=== PATIENT | female | born 1985 | race Hispanic/Latino ===

== ENCOUNTER 2017-06-24 15:57 | Emergency (ER) | payer SELFPAY ==
[2017-06-24 17:03] LABS: Pregnancy Test - Urine (BHCG) Negative (Negative); Pregu Control Background? CLEAR/WHITE (CLR/WHITE); Pregu Control Bar Appear? YES (CONTROL BAR)
[2017-06-24 17:04] LABS: Bilirubin Small (Negative); Blood, Urine Large (Negative); Glucose, Urine (Dipstick) Negative (Negative); Leukocyte Negative (Negative); Nitrite Negative (Negative); Protein, Urine (Dipstick) 30 mg/dL (Neg-Trace); Urobilinogen 0.2 mg/dL (0.2-1.0); pH, Urine 5.5 (5.0-9.0)
[2017-06-24 17:05] LABS: Clarity Cloudy (Clear)
[2017-06-24 17:12] LABS: Specific Gravity 1.025 (1.002-1.036); Specific Gravity, Urine 1.025 (1.005-1.030)
[2017-06-24 17:15] LABS: RBC/HPF GREATER THAN 50-TNTC HPF (0-3)
[2017-06-24 17:16] LABS: Bacteria/HPF None Seen HPF (None Seen); Hyaline Casts/LPF NONE SEEN LPF (0-3 Hyaline); Squamous Epithelial 0-3 HPF (0-3); WBC/HPF 0-3 HPF (0-3)
== END 2017-06-24 18:25 | disposition home or self-care (01) ==
LOC: ERS 15:57
DX: N93.8 Other specified abnormal uterine and vaginal bleeding (principal)
CPT/HCPCS: 81003; 81015; 81025; 99284

== ENCOUNTER 2017-07-18 08:34 | Emergency (ER) | payer SELFPAY ==
[2017-07-18] MEDS ORDERED: Ondansetron HCl/PF 4 MG/2 ML Vial ONE (09:11)
[2017-07-18 09:33] LABS: Hemoglobin 9.2 g/dL (12.0-16.0); Mean Corpuscular HGB CONC 29.5 g/dL (32.0-36.0); Mean Corpuscular Hemoglobin 20.3 pg (27.0-31.0); Mean Platelet Volume 10.5 fL (7.4-10.4); Platelet Count 314 thou/uL (130-400); RBC Distribution Width 24.5 % (11.5-14.5); Red Blood Cell (RBC) Count 4.55 mill/uL (4.20-5.40); White Blood Cell (WBC) Count 11.9 thou/uL (4.8-10.8)
[2017-07-18 09:35] LABS: BHCG - Serum Negative (NEGATIVE); Pregs Control Background? CLEAR/WHITE (CLR/WHITE); Pregs Control Bar Appear? YES (CONTROL BAR)
[2017-07-18 09:43] LABS: #Lymphocytes 0.6 thou/uL (1.20-3.40); #Monocytes 0.4 thou/uL (0.11-0.59); #Neutrophils 10.8 thou/uL (1.40-6.50); %Basophils 0.1 % (0.0-1.0); %Eosinophils 0.2 % (0.0-10.0); %Lymphocytes 5.4 % (21.0-51.0); %Monocytes 3.7 % (0.0-10.0); %Neutrophils 90.6 % (42.0-75.0); Anisocytosis MODERATE=16-30 cells (100X) (0-5/hpf); MDiff Complete? YES; Microcytosis SLIGHT = 6-15 cells (100X) (0-5/hpf); Poikilocytosis SLIGHT = 6-15 cells (100X) (0-5/hpf); Polychromasia SLIGHT = 2-3 cells (100X) (0-2/hpf)
[2017-07-18 09:46] LABS: ALT (SGPT) 33 U/L (8-55); AST (SGOT) 20 U/L (5-34); Alkaline Phosphatase 93 U/L (40-150); Anion Gap 14 mmol/L (10-20); BUN (Urea Nitrogen) 7 mg/dL (7.0-18.7); Bilirubin, Total 0.7 mg/dL (0.2-1.2); Calc. Creatinine Clearance 0 mL/min (70-130); Calcium 9.2 mg/dL (7.8-10.44); Carbon Dioxide 19 mmol/L (22-29); Chloride 103 mmol/L (98-107); Estimated GFR-MDRD Greater than 90; Globulin 3.8 g/dL (2.4-3.5); Glucose 143 mg/dL (70-105); Lipase 10 U/L (8-78); Potassium 3.8 mmol/L (3.5-5.1); Protein, Total 7.8 g/dL (6.0-8.3); Sodium 132 mmol/L (136-145)
== END 2017-07-18 10:48 | disposition home or self-care (01) ==
LOC: ERS 08:34
DX: R11.2 Nausea with vomiting, unspecified (principal); R19.7 Diarrhea, unspecified; Z79.899 Other long term (current) drug therapy
CPT/HCPCS: 36415; 80053; 83690; 84703; 85025; 96361; 96372; 96374; J2405

== ENCOUNTER 2017-08-08 07:37 | Emergency (ER) | payer SELFPAY ==
[2017-08-08 08:48] LABS: ALT (SGPT) 42 U/L (8-55); AST (SGOT) 31 U/L (5-34); Albumin 3.9 g/dL (3.5-5.0); Alkaline Phosphatase 75 U/L (40-150); Anion Gap 12 mmol/L (10-20); BUN (Urea Nitrogen) 9 mg/dL (7.0-18.7); Bilirubin, Total 0.3 mg/dL (0.2-1.2); Calc. Creatinine Clearance 0 mL/min (70-130); Calcium 9.5 mg/dL (7.8-10.44); Carbon Dioxide 23 mmol/L (22-29); Chloride 106 mmol/L (98-107); Estimated GFR-MDRD Greater than 90; Globulin 4.1 g/dL (2.4-3.5); Glucose 93 mg/dL (70-105); Potassium 4.3 mmol/L (3.5-5.1); Sodium 137 mmol/L (136-145)
[2017-08-08 09:11] LABS: #Eosinphils 0.1 thou/uL (0.0-0.7); #Lymphocytes 1.5 thou/uL (1.20-3.40); #Monocytes 0.5 thou/uL (0.11-0.59); #Neutrophils 4.5 thou/uL (1.40-6.50); %Basophils 0.5 % (0.0-1.0); %Eosinophils 1.5 % (0.0-10.0); %Lymphocytes 21.9 % (21.0-51.0); %Monocytes 7.8 % (0.0-10.0); %Neutrophils 68.3 % (42.0-75.0); Hemoglobin 11.6 g/dL (12.0-16.0); Mean Corpuscular HGB CONC 29.5 g/dL (32.0-36.0); Mean Corpuscular Hemoglobin 22.8 pg (27.0-31.0); Mean Corpuscular Volume 77.3 fl (81.0-99.0); Mean Platelet Volume 11.6 fL (7.4-10.4); Platelet Count 266 thou/uL (130-400); RBC Distribution Width 24.3 % (11.5-14.5); Red Blood Cell (RBC) Count 5.06 mill/uL (4.20-5.40); White Blood Cell (WBC) Count 6.6 thou/uL (4.8-10.8)
[2017-08-08 09:37] LABS: BHCG - Serum Negative (NEGATIVE); Pregs Control Background? CLEAR/WHITE (CLR/WHITE); Pregs Control Bar Appear? YES (CONTROL BAR)
[2017-08-08 09:46] LABS: Bilirubin Negative (Negative); Blood, Urine Large (Negative); Clarity CLOUDY (Clear); Glucose, Urine (Dipstick) Negative (Negative); Leukocyte Small (Negative); Nitrite Negative (Negative); Protein, Urine (Dipstick) Trace mg/dL (Neg-Trace); Specific Gravity, Urine 1.025 (1.002-1.036)
[2017-08-08 09:48] LABS: Bacteria/HPF None Seen HPF (None Seen); Hyaline Casts/LPF 0-3 HYALINE CAST LPF (0-3 Hyaline); Pathc Cast-AUWi Flag 0.16 (0-2.49); RBC/HPF GREATER THAN 50-TNTC HPF (0-3); Squamous Epithelial 0-3 HPF (0-3); WBC/HPF 0-3 HPF (0-3)
[2017-08-08 09:49] LABS: Pregnancy Test - Urine (BHCG) Negative (Negative); Specific Gravity 1.025 (1.002-1.036)
[2017-08-08 09:50] LABS: Pregu Control Background? CLEAR/WHITE (CLR/WHITE); Pregu Control Bar Appear? YES (CONTROL BAR)
[2017-08-08] MEDS ORDERED: Ketorolac Tromethamine 30 MG/ML VIAL ONE (10:18)
--- NOTE | 2017-08-08 11:09 | ULT ---
PELVIC ULTRASOUND: Date: 08/08/17 COMPARISON: None. HISTORY: Heavy vaginal bleeding and severe pelvic pain. TECHNIQUE: Multiplanar Springer scale and color Doppler images obtained in a transabdominal and transvaginal pelvic ultrasound. FINDINGS: Evaluation is limited secondary to patient's large body habitus. Neither ovary was able to be visuali zed. There is a small nabothian cyst in the cervix. The uterus is slightly enlarged. The endometrial strip e appears thickened. And heterogeneous measuring 4.0 cm. No obvious flow is seen within this endometr ial stripe and this could potentially be blood products within the uterus. No free fluid is seen in the pelvis. Neither ovary is able to be visualized. IMPRESSION: Apparent thickening of the endometrial stripe. No obvious flow is seen within this thickening and thi s could represent blood products. However, endometrial aplasia or an endometrial neoplasm are also po ssibilities. Correlate with gynecologic exam. POS: CASH
== END 2017-08-08 11:57 | disposition home or self-care (01) ==
LOC: ERS 07:37
DX: N93.8 Other specified abnormal uterine and vaginal bleeding (principal); Z79.899 Other long term (current) drug therapy
CPT/HCPCS: 36415; 76856; 80053; 81003; 81015; 81025; 84703; 85025; 96374; J1885

== ENCOUNTER 2017-10-20 17:22 | Emergency (ER) | payer SELFPAY ==
[2017-10-20 18:01] LABS: Bilirubin Negative (Negative); Blood, Urine Large (Negative); Glucose, Urine (Dipstick) Negative (Negative); Leukocyte Moderate (Negative); Nitrite Positive (Negative); Protein, Urine (Dipstick) 100 mg/dL (Neg-Trace); pH, Urine 5.5 (5.0-9.0)
[2017-10-20 18:05] LABS: Specific Gravity, Urine 1.025 (1.002-1.036)
[2017-10-20 18:07] LABS: #Eosinphils 0.1 thou/uL (0.0-0.7); #Lymphocytes 2.3 thou/uL (1.20-3.40); #Neutrophils 11.2 thou/uL (1.40-6.50); %Basophils 0.3 % (0.0-1.0); %Eosinophils 0.8 % (0.0-10.0); %Lymphocytes 15.8 % (21.0-51.0); %Monocytes 6.8 % (0.0-10.0); %Neutrophils 76.4 % (42.0-75.0); Hemoglobin 11.9 g/dL (12.0-16.0); Mean Corpuscular HGB CONC 31.7 g/dL (32.0-36.0); Mean Corpuscular Hemoglobin 26.2 pg (27.0-31.0); Mean Corpuscular Volume 82.8 fl (81.0-99.0); Mean Platelet Volume 8.5 fL (7.4-10.4); Platelet Count 272 thou/uL (130-400); RBC Distribution Width 14.9 % (11.5-14.5); Red Blood Cell (RBC) Count 4.55 mill/uL (4.20-5.40); White Blood Cell (WBC) Count 14.7 thou/uL (4.8-10.8)
[2017-10-20 18:13] LABS: Clarity Cloudy (Clear)
[2017-10-20 18:14] LABS: RBC/HPF GREATER THAN 50-TNTC HPF (0-3); Squamous Epithelial 0-3 HPF (0-3)
[2017-10-20 18:15] LABS: Bacteria/HPF Rare-Few HPF (None Seen); Hyaline Casts/LPF 0-3 HYALINE CAST LPF (0-3 Hyaline)
[2017-10-20 18:17] LABS: Pregnancy Test - Urine (BHCG) Negative (Negative); Pregu Control Background? CLEAR/WHITE (CLR/WHITE); Pregu Control Bar Appear? YES (CONTROL BAR); Specific Gravity 1.025 (1.002-1.036)
[2017-10-20 18:34] LABS: ALT (SGPT) 25 U/L (8-55); AST (SGOT) 21 U/L (5-34); Albumin 3.8 g/dL (3.5-5.0); Alkaline Phosphatase 80 U/L (40-150); Anion Gap 13 mmol/L (10-20); BUN (Urea Nitrogen) 6 mg/dL (7.0-18.7); Bilirubin, Total 0.2 mg/dL (0.2-1.2); Calc. Creatinine Clearance 0 mL/min (70-130); Carbon Dioxide 22 mmol/L (22-29); Chloride 108 mmol/L (98-107); Estimated GFR-MDRD Greater than 90; Globulin 3.8 g/dL (2.4-3.5); Glucose 98 mg/dL (70-105); Lipase 13 U/L (8-78); Potassium 3.7 mmol/L (3.5-5.1); Protein, Total 7.6 g/dL (6.0-8.3); Sodium 139 mmol/L (136-145)
[2017-10-20] MEDS ORDERED: Ketorolac Tromethamine 60 MG/2 ML VIAL ONE (18:41)
--- NOTE | 2017-10-20 20:26 | ULT ---
PELVIC ULTRASOUND: INDICATIONS: A 32-year-old female with pelvic pain. TECHNIQUE: Transabdominal and endovaginal ultrasound of the pelvis performed. FINDINGS: The uterus is mildly prominent, measured at 10.6 x 5.8 x 8 cm. The endometrium is thickened, measure d at 2.7 to 3 cm. Both ovaries are identified and appear unremarkable. Color Doppler with spectral analysis demonstrat es blood flow to both ovaries. When comparison is made to the ultrasound exam dated 08/08/2017, the endometrial thickening is slight ly prominent today but is persistent. IMPRESSION: Persistent endometrial thickening. POS: CASH
== END 2017-10-20 20:48 | disposition home or self-care (01) ==
LOC: ERS 17:22
DX: N30.00 Acute cystitis without hematuria (principal); Z79.899 Other long term (current) drug therapy
CPT/HCPCS: 36415; 76856; 80053; 81003; 81015; 81025; 83690; 85025; 96372; J1885

== ENCOUNTER 2017-10-24 09:06 | Emergency (ER) | payer SELFPAY ==
[2017-10-24 09:48] LABS: #Eosinphils 0.2 thou/uL (0.0-0.7); #Lymphocytes 1.8 thou/uL (1.20-3.40); #Monocytes 0.6 thou/uL (0.11-0.59); #Neutrophils 6.9 thou/uL (1.40-6.50); %Basophils 0.4 % (0.0-1.0); %Eosinophils 1.6 % (0.0-10.0); %Lymphocytes 18.9 % (21.0-51.0); Hemoglobin 9.9 g/dL (12.0-16.0); Mean Corpuscular Hemoglobin 26.2 pg (27.0-31.0); Mean Corpuscular Volume 84.7 fl (81.0-99.0); Mean Platelet Volume 7.8 fL (7.4-10.4); Platelet Count 277 thou/uL (130-400); RBC Distribution Width 14.3 % (11.5-14.5); Red Blood Cell (RBC) Count 3.76 mill/uL (4.20-5.40); White Blood Cell (WBC) Count 9.5 thou/uL (4.8-10.8)
[2017-10-24 09:51] LABS: Clarity Turbid (Clear)
[2017-10-24 09:52] LABS: Bilirubin Unable to Interpret (Negative); Blood, Urine Unable to Interpret (Negative); Glucose, Urine (Dipstick) Unable to Interpret mg/dL (Negative); Leukocyte Unable to Interpret (Negative); Nitrite Unable to Interpret (Negative); Protein, Urine (Dipstick) Unable to Interpret mg/dL (Neg-Trace); Urobilinogen UNABLE TO INTERPRET mg/dL (0.2-1.0)
[2017-10-24 09:54] LABS: Specific Gravity, Urine 1.018 (1.002-1.036); pH, Urine 6.6 (5.0-9.0)
[2017-10-24 09:55] LABS: RBC/HPF GREATER THAN 50-TNTC HPF (0-3)
[2017-10-24 09:56] LABS: Bacteria/HPF 1+ HPF (None Seen); Hyaline Casts/LPF 0-3 HYALINE CAST LPF (0-3 Hyaline)
[2017-10-24 09:57] LABS: Pregnancy Test - Urine (BHCG) Negative (Negative); Pregu Control Background? CLEAR/WHITE (CLR/WHITE); Pregu Control Bar Appear? YES (CONTROL BAR); Specific Gravity 1.018 (1.002-1.036)
[2017-10-24 10:10] LABS: Anion Gap 13 mmol/L (10-20); BUN (Urea Nitrogen) 6 mg/dL (7.0-18.7); Calc. Creatinine Clearance 0 mL/min (70-130); Calcium 9.1 mg/dL (7.8-10.44); Carbon Dioxide 23 mmol/L (22-29); Chloride 110 mmol/L (98-107); Estimated GFR-MDRD Greater than 90; Glucose 105 mg/dL (70-105); Potassium 3.7 mmol/L (3.5-5.1); Sodium 142 mmol/L (136-145)
[2017-10-24 12:19] LABS: Bilirubin Negative (Negative); Blood, Urine Negative (Negative); Clarity CLOUDY (Clear); Glucose, Urine (Dipstick) Negative (Negative); Leukocyte Negative (Negative); Nitrite Negative (Negative); Protein, Urine (Dipstick) Negative (Neg-Trace); Specific Gravity, Urine 1.025 (1.002-1.036); Urobilinogen 0.2 mg/dL (0.2-1.0)
== END 2017-10-24 13:49 | disposition home or self-care (01) ==
LOC: ERS 09:06
DX: N80.9 Endometriosis, unspecified (principal); D64.9 Anemia, unspecified; Z79.899 Other long term (current) drug therapy
CPT/HCPCS: 36415; 51701; 80048; 81003; 81015; 81025; 85025; 87086; A4353

== ENCOUNTER 2017-11-14 16:23 | Emergency (ER) | payer SELFPAY ==
[~2017-11-14 16:23] MED LIST: ISOVUE-370 76%-LOCM 1 ML ONE
[2017-11-14 17:08] LABS: #Basophils 0.1 thou/uL (0.0-0.2); #Eosinphils 0.1 thou/uL (0.0-0.7); #Lymphocytes 1.7 thou/uL (1.20-3.40); #Monocytes 0.4 thou/uL (0.11-0.59); #Neutrophils 9.3 thou/uL (1.40-6.50); %Basophils 0.5 % (0.0-1.0); %Eosinophils 1.1 % (0.0-10.0); %Lymphocytes 14.5 % (21.0-51.0); %Monocytes 3.8 % (0.0-10.0); %Neutrophils 80.1 % (42.0-75.0); Hemoglobin 9.7 g/dL (12.0-16.0); Mean Corpuscular HGB CONC 31.8 g/dL (32.0-36.0); Mean Corpuscular Hemoglobin 26.7 pg (27.0-31.0); Mean Corpuscular Volume 84.1 fL (78.0-98.0); Mean Platelet Volume 7.6 fL (7.4-10.4); Platelet Count 315 thou/uL (130-400); RBC Distribution Width 14.2 % (11.5-14.5); Red Blood Cell (RBC) Count 3.64 mill/uL (4.20-5.40); White Blood Cell (WBC) Count 11.6 thou/uL (4.8-10.8)
[2017-11-14 17:29] LABS: ALT (SGPT) 17 U/L (8-55); AST (SGOT) 11 U/L (5-34); Albumin 3.6 g/dL (3.5-5.0); Alkaline Phosphatase 84 U/L (40-150); Anion Gap 11 mmol/L (10-20); BUN (Urea Nitrogen) 10 mg/dL (7.0-18.7); Bilirubin, Total 0.2 mg/dL (0.2-1.2); Calc. Creatinine Clearance 0 mL/min (70-130); Calcium 9.1 mg/dL (7.8-10.44); Carbon Dioxide 22 mmol/L (22-29); Chloride 109 mmol/L (98-107); Estimated GFR-MDRD Greater than 90; Globulin 3.7 g/dL (2.4-3.5); Glucose 168 mg/dL (70-105); Potassium 3.7 mmol/L (3.5-5.1); Protein, Total 7.3 g/dL (6.0-8.3); Sodium 138 mmol/L (136-145)
[2017-11-14 17:48] LABS: Bilirubin Moderate (Negative); Blood, Urine Large (Negative); Clarity CLOUDY (Clear); Glucose, Urine (Dipstick) Negative (Negative); Leukocyte Moderate (Negative); Nitrite Negative (Negative); Protein, Urine (Dipstick) 300 mg/dL (Neg-Trace); Specific Gravity, Urine 1.033 (1.002-1.036); Urobilinogen 0.2 mg/dL (0.2-1.0); pH, Urine 5.5 (5.0-9.0)
[2017-11-14 17:50] LABS: Bacteria/HPF None Seen HPF (None Seen); Hyaline Casts/LPF 0-3 HYALINE CAST LPF (0-3 Hyaline); RBC/HPF GREATER THAN 50-TNTC HPF (0-3); Squamous Epithelial None Seen HPF (0-3)
[2017-11-14 17:51] LABS: Pregnancy Test - Urine (BHCG) Negative (Negative); Pregu Control Background? CLEAR/WHITE (CLR/WHITE); Pregu Control Bar Appear? YES (CONTROL BAR); Specific Gravity 1.033 (1.002-1.036)
[2017-11-14] MEDS ORDERED: Acetaminophen 500 MG TAB ONE (19:22)
--- NOTE | 2017-11-14 19:43 | CT ---
CT OF THE ABDOMEN AND PELVIS WITH CONTRAST 11/14/17 COMPARISON: 04/14/14, pelvic ultrasound 08/08/17 and 10/20/17. HISTORY: Lower abdominal pain and vaginal discharge. TECHNIQUE: Multiple contiguous axial images were obtained in a CT of the abdomen and pelvis with contrast. Coron al reformats were performed. FINDINGS: The liver, gallbladder, kidneys, adrenal glands, spleen, and pancreas are unremarkable. No free air, free fluid or stranding changes are seen in the abdomen or pelvis. There is persistent hypodensity within the uterus. There is slightly increased density along the left aspect of this uterine hypodensity. This persists compared to the exam from 2014 and an abnormal end ometrial stripe was seen on recent pelvic ultrasounds. The large and small bowel are unremarkable. The appendix is normal. No abdominal or pelvic lymphadeno emir are seen. OSSEOUS STRUCTURES: The visualized inferior thorax and abdominal wall soft tissues are unremarkable. IMPRESSION: 1. There is persistent abnormal appearance of the uterus. A uterine neoplasm must be excluded. C orrelate with gynecologic exam and history of Pap smear. 2. No other significant intra-abdominal/pelvic abnormality is identified. POS: PIO
[2017-11-14] MEDS ORDERED: Ketorolac Tromethamine 30 MG/ML VIAL ONE (20:59)
== END 2017-11-14 22:05 | disposition home or self-care (01) ==
LOC: ERS 16:23
DX: N93.9 Abnormal uterine and vaginal bleeding, unspecified (principal); R10.30 Lower abdominal pain, unspecified; D64.9 Anemia, unspecified; Z79.899 Other long term (current) drug therapy
CPT/HCPCS: 36415; 74177; 80053; 81003; 81015; 81025; 83690; 85025; 96372; 96374; J1885; J2270

== ENCOUNTER 2017-11-23 06:50 | Emergency (ER) | payer SELFPAY ==
[2017-11-23 09:07] LABS: #Eosinphils 0.1 thou/uL (0.0-0.7); #Lymphocytes 1.7 thou/uL (1.20-3.40); #Monocytes 0.6 thou/uL (0.11-0.59); #Neutrophils 6.1 thou/uL (1.40-6.50); %Basophils 0.4 % (0.0-1.0); %Eosinophils 1.3 % (0.0-10.0); %Lymphocytes 20.1 % (21.0-51.0); %Monocytes 6.6 % (0.0-10.0); %Neutrophils 71.7 % (42.0-75.0); Hemoglobin 8.5 g/dL (12.0-16.0); Mean Corpuscular Hemoglobin 26.8 pg (27.0-31.0); Mean Corpuscular Volume 83.6 fL (78.0-98.0); Mean Platelet Volume 7.2 fL (7.4-10.4); Platelet Count 289 thou/uL (130-400); RBC Distribution Width 13.5 % (11.5-14.5); Red Blood Cell (RBC) Count 3.18 mill/uL (4.20-5.40); White Blood Cell (WBC) Count 8.6 thou/uL (4.8-10.8)
[2017-11-23 09:16] LABS: BHCG - Serum Negative (NEGATIVE); Pregs Control Background? CLEAR/WHITE (CLR/WHITE); Pregs Control Bar Appear? YES (CONTROL BAR)
[2017-11-23 09:23] LABS: ALT (SGPT) 15 U/L (8-55); AST (SGOT) 12 U/L (5-34); Albumin 3.4 g/dL (3.5-5.0); Alkaline Phosphatase 68 U/L (40-150); Anion Gap 11 mmol/L (10-20); BUN (Urea Nitrogen) 5 mg/dL (7.0-18.7); Bilirubin, Total 0.2 mg/dL (0.2-1.2); Calc. Creatinine Clearance 0 mL/min (70-130); Calcium 8.8 mg/dL (7.8-10.44); Carbon Dioxide 23 mmol/L (22-29); Chloride 108 mmol/L (98-107); Estimated GFR-MDRD Greater than 90; Globulin 3.2 g/dL (2.4-3.5); Glucose 87 mg/dL (70-105); Potassium 3.7 mmol/L (3.5-5.1); Protein, Total 6.6 g/dL (6.0-8.3); Sodium 138 mmol/L (136-145)
--- NOTE | 2017-11-23 11:03 | ULT ---
TRANSABDOMINAL AND TRANSVAGINAL PELVIC ULTRASOUND WITH DOPPLER: Date: 11/23/17 PROVIDED CLINICAL HISTORY: Vaginal bleeding and pelvic pain. FINDINGS: Comparison is made with the examination performed 10/20/17. Evaluation is limited by patient body habitus. Uterus measures about 10.6 x 8.0 x 8.7 cm, without paulo dence for focal myometrial abnormality. There is prominent thickening of the uterine endometrium with associated heterogeneity measuring about 3.7 cm in thickness. The right ovary is not demonstrated. The left ovary is sonographically unremarkable. Color Doppler an d spectral analysis of the left ovarian waveform reveals flow. There is no evidence for free pelvic f luid. IMPRESSION: Conspicuous thickening of the uterine endometrium may reflect endometrial hyperplasia. Other etiologi es are not excluded. 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 POS: CASH
[2017-11-24 22:45] LABS: Chlamydia by PCR DETECTED (NotDetected); GC by PCR Not Detected (NotDetected)
== END 2017-11-23 10:35 | disposition home or self-care (01) ==
LOC: ERS 06:50
DX: N93.8 Other specified abnormal uterine and vaginal bleeding (principal); D64.9 Anemia, unspecified; Z79.899 Other long term (current) drug therapy
CPT/HCPCS: 36415; 76856; 80053; 84703; 85025; 87480; 87491; 87510; 87591; 87660; 99284

== ENCOUNTER 2018-01-04 07:25 | Emergency (ER) | payer SELFPAY ==
[2018-01-04 08:24] LABS: Bilirubin Negative (Negative); Blood, Urine Large (Negative); Glucose, Urine (Dipstick) Negative (Negative); Leukocyte Negative (Negative); Nitrite Negative (Negative); Protein, Urine (Dipstick) Negative (Neg-Trace); Specific Gravity, Urine 1.015 (1.005-1.030); Urobilinogen 0.2 mg/dL (0.2-1.0); pH, Urine 6.5 (5.0-9.0)
[2018-01-04 08:25] LABS: Clarity Hazy (Clear); Pregnancy Test - Urine (BHCG) Negative (Negative); Pregu Control Bar Appear? YES (CONTROL BAR); Specific Gravity 1.015 (1.002-1.036)
[2018-01-04 08:26] LABS: Pregu Control Background? CLEAR/WHITE (CLR/WHITE)
[2018-01-04 08:33] LABS: RBC/HPF GREATER THAN 50-TNTC HPF (0-3); Squamous Epithelial 0-3 HPF (0-3); WBC/HPF 0-3 HPF (0-3)
[2018-01-04 08:34] LABS: Bacteria/HPF 2+ HPF (None Seen)
[2018-01-04] MEDS ORDERED: Ketorolac Tromethamine 60 MG/2 ML VIAL ONE (09:10)
--- NOTE | 2018-01-04 10:16 | ULT ---
PELVIC ULTRASOUND: Transabdominal and endovaginal ultrasound of pelvis performed. HISTORY: Pelvic pain. FINDINGS: The uterine fundus is mildly prominent and heterogeneous measuring 9.1 x 9.0 x 7.0 cm. Endometrial stripe is thickened measured at 1.6 cm. Both ovaries are identified. Color Doppler and spectral analysis demonstrate blood flow to both ovar ies. A small amount of free fluid in the cul-de-sac. The myometrium is mildly heterogeneous, although no defined fibroid is identified. IMPRESSION: 1. Uterine fundus is mildly heterogeneous and prominent, although no defined fibroid seen. 2. Mildly thickened endometrium. 3. A small amount of free fluid. POS: H
== END 2018-01-04 10:11 | disposition home or self-care (01) ==
LOC: ERS 07:25
DX: N80.0 Endometriosis of uterus (principal); Z79.899 Other long term (current) drug therapy
CPT/HCPCS: 76856; 81003; 81015; 81025; 96372; J1885

== ENCOUNTER 2018-02-02 09:14 | Emergency (ER) | payer SELFPAY ==
[2018-02-02 09:58] LABS: #Eosinphils 0.2 thou/uL (0.0-0.7); #Lymphocytes 1.5 thou/uL (1.20-3.40); #Monocytes 0.4 thou/uL (0.11-0.59); #Neutrophils 7.1 thou/uL (1.40-6.50); %Basophils 0.3 % (0.0-1.0); %Eosinophils 1.8 % (0.0-10.0); %Lymphocytes 16.2 % (21.0-51.0); %Monocytes 4.4 % (0.0-10.0); %Neutrophils 77.3 % (42.0-75.0); Hemoglobin 11.3 g/dL (12.0-16.0); Mean Corpuscular HGB CONC 30.5 g/dL (32.0-36.0); Mean Corpuscular Hemoglobin 25.5 pg (27.0-31.0); Mean Corpuscular Volume 83.6 fL (78.0-98.0); Mean Platelet Volume 8.6 fL (7.4-10.4); Platelet Count 312 thou/uL (130-400); RBC Distribution Width 14.9 % (11.5-14.5); Red Blood Cell (RBC) Count 4.42 mill/uL (4.20-5.40); White Blood Cell (WBC) Count 9.1 thou/uL (4.8-10.8)
[2018-02-02 10:12] LABS: Bilirubin Negative (Negative); Blood, Urine Trace (Negative); Clarity CLEAR (Clear); Glucose, Urine (Dipstick) Negative (Negative); Leukocyte Moderate (Negative); Nitrite Negative (Negative); Protein, Urine (Dipstick) Negative (Neg-Trace); Specific Gravity, Urine 1.022 (1.002-1.036); Urobilinogen 0.2 mg/dL (0.2-1.0); pH, Urine 5.5 (5.0-9.0)
[2018-02-02 10:14] LABS: Pregnancy Test - Urine (BHCG) Negative (Negative); Pregu Control Background? CLEAR/WHITE (CLR/WHITE); Pregu Control Bar Appear? YES (CONTROL BAR); Specific Gravity 1.022 (1.002-1.036)
[2018-02-02 10:15] LABS: Bacteria/HPF None Seen HPF (None Seen); Hyaline Casts/LPF 0-3 HYALINE CAST LPF (0-3 Hyaline); Pathc Cast-AUWi Flag 0.29 (0-2.49); Squamous Epithelial 0-3 HPF (0-3)
[2018-02-02 10:15] LABS: ALT (SGPT) 15 U/L (8-55); AST (SGOT) 9 U/L (5-34); Albumin 3.8 g/dL (3.5-5.0); Alkaline Phosphatase 79 U/L (40-150); Anion Gap 13 mmol/L (10-20); BUN (Urea Nitrogen) 10 mg/dL (7.0-18.7); Bilirubin, Total 0.3 mg/dL (0.2-1.2); Calc. Creatinine Clearance 0 mL/min (70-130); Calcium 9.4 mg/dL (7.8-10.44); Carbon Dioxide 20 mmol/L (22-29); Chloride 108 mmol/L (98-107); Estimated GFR-MDRD Greater than 90; Globulin 3.6 g/dL (2.4-3.5); Glucose 173 mg/dL (70-105); Potassium 3.8 mmol/L (3.5-5.1); Protein, Total 7.4 g/dL (6.0-8.3); Sodium 137 mmol/L (136-145)
== END 2018-02-02 11:10 | disposition home or self-care (01) ==
LOC: ERS 09:14
DX: N39.0 Urinary tract infection, site not specified (principal); D64.9 Anemia, unspecified; Z79.899 Other long term (current) drug therapy
CPT/HCPCS: 36415; 80053; 81003; 81015; 81025; 85025; 87804; 99284

== ENCOUNTER 2018-03-22 17:53 | Emergency (ER) | payer SELFPAY ==
[2018-03-22] MEDS ORDERED: Acetaminophen 650 MG/20.3 ML UDCUP ONE ×2 (18:33→18:40)
[2018-03-22] MEDS ORDERED: Dexamethasone 4 mg/ml Vial ONE (18:33)
[2018-03-22] MEDS ORDERED: Ibuprofen 100 MG/5 ML UDCUP ONE (19:12)
== END 2018-03-22 19:56 | disposition home or self-care (01) ==
LOC: ERS 17:53
DX: J02.9 Acute pharyngitis, unspecified (principal)
CPT/HCPCS: 87081; 87430; 87804; 99283; J1100

== ENCOUNTER 2018-03-25 07:42 | Emergency (ER) | payer SELFPAY ==
--- NOTE | 2018-03-25 08:43 | RAD ---
TWO VIEW CHEST: Indication: Cough. FINDINGS: Mild interstitial prominence of each lung is present. There is mild prominence of the cardiac silhoue tte and pulmonary vasculature. No effusion, lobar consolidation, or pneumothorax. IMPRESSION: Mild interstitial prominence along with slight prominence of cardiac silhouette and pulmonary vascula ture. Correlate with fluid status and if necessary imaging following up may be obtained. POS: TPC
== END 2018-03-25 08:45 | disposition home or self-care (01) ==
LOC: ERS 07:42
DX: B34.9 Viral infection, unspecified (principal); D64.9 Anemia, unspecified
CPT/HCPCS: 71046

== ENCOUNTER 2018-05-15 11:35 | Emergency (ER) | payer SELFPAY | END 2018-05-15 12:55 | disposition home or self-care (01) | LOC: ERS 11:35 | DX: J30.9 Allergic rhinitis, unspecified (principal); D64.9 Anemia, unspecified; Z79.899 Other long term (current) drug therapy | CPT/HCPCS: 99283 ==

== ENCOUNTER 2018-05-27 19:40 | Emergency (ER) | payer SELFPAY ==
--- NOTE | 2018-05-27 21:09 | RAD ---
RADIOGRAPH RIGHT SHOULDER THREE VIEWS: 05/27/18 HISTORY: 33-year-old female with right shoulder pain for one week without trauma. FINDINGS: There is sclerosis and mild osteophytosis of the AC joint. Mild bony hypertrophy of the inferior aspe ct of the glenoid. The rest of the glenohumeral joint is normal. No fracture, dislocation or subluxat ion. No rotator cuff calcifications are visualized. IMPRESSION: 1. Mild to moderate osteoarthrosis of the acromioclavicular joint. 2. Mild osteoarthrosis of the glenohumeral joint. POS: CASH
[2018-05-27] MEDS ORDERED: Ketorolac Tromethamine 30 MG/ML VIAL ONE (21:38)
== END 2018-05-27 22:00 | disposition home or self-care (01) ==
LOC: ERS 19:40
DX: M25.511 Pain in right shoulder (principal); D64.9 Anemia, unspecified; Z79.899 Other long term (current) drug therapy
CPT/HCPCS: 96372; J1885

== ENCOUNTER 2018-07-23 08:03 | Emergency (ER) | payer SELFPAY | END 2018-07-23 08:38 | disposition home or self-care (01) | LOC: ERS 08:03 | DX: M25.511 Pain in right shoulder (principal); M25.512 Pain in left shoulder; D64.9 Anemia, unspecified | CPT/HCPCS: 99281 ==

== ENCOUNTER 2018-09-20 18:50 | Emergency (ER) | payer SELFPAY | END 2018-09-20 19:34 | disposition home or self-care (01) | LOC: ERS 18:50 | DX: M54.2 Cervicalgia (principal); D64.9 Anemia, unspecified | CPT/HCPCS: 99281 ==

== ENCOUNTER 2018-10-04 09:38 | Emergency (ER) | payer MEDICAID, SELFPAY ==
[2018-10-04] MEDS ORDERED: Ketorolac Tromethamine 60 MG/2 ML VIAL ONE (10:17)
== END 2018-10-04 11:23 | disposition home or self-care (01) ==
LOC: ERS 09:38
DX: M54.5 Low back pain (principal); D64.9 Anemia, unspecified
CPT/HCPCS: 96372; J1885

== ENCOUNTER 2018-12-23 13:12 | Emergency (ER) | payer SELFPAY | END 2018-12-23 15:00 | disposition home or self-care (01) | LOC: ERS 13:12 | DX: J02.9 Acute pharyngitis, unspecified (principal); D64.9 Anemia, unspecified | CPT/HCPCS: 87081; 87430; 99283 ==

== ENCOUNTER 2019-03-08 21:14 | Emergency (ER) | payer SELFPAY ==
[2019-03-08] MEDS ORDERED: Ketorolac Tromethamine 30 MG/ML VIAL ONE (22:33)
[2019-03-08] MEDS ORDERED: Cyclobenzaprine 10 MG TAB ONE (22:33)
[2019-03-08 23:02] LABS: Bacteria/HPF None Seen HPF (None Seen); Bilirubin Negative (Negative); Blood, Urine 1+ (Negative); Clarity Turbid (Clear); Glucose, Urine (Dipstick) Normal (Negative); Leukocyte 25 Leu/uL (Negative); Nitrite Negative (Negative); Protein, Urine (Dipstick) 50 mg/dL (Neg-Trace); RBC/HPF 0-3 HPF (0-3); Urobilinogen Normal mg/dL (Less than 2)
== END 2019-03-08 23:47 | disposition home or self-care (01) ==
LOC: ERS 21:14
DX: D64.9 Anemia, unspecified (principal); M54.5 Low back pain
CPT/HCPCS: 81003; 81015; 96372; 99283; J1885

== ENCOUNTER 2019-08-05 03:55 | Emergency (ER) | payer SELFPAY ==
[2019-08-05 04:28] LABS: Bacteria/HPF None Seen HPF (None Seen); Bilirubin Negative (Negative); Blood, Urine 2+ (Negative); Clarity Clear (Clear); Glucose, Urine (Dipstick) Normal (Negative); Leukocyte 25 Leu/uL (Negative); Nitrite Negative (Negative); Protein, Urine (Dipstick) 20 mg/dL (Neg-Trace); RBC/HPF 21-50 HPF (0-3); Squamous Epithelial 0-3 HPF (0-3); Urobilinogen Normal mg/dL (Less than 2)
[2019-08-05 04:29] LABS: Pregnancy Test - Urine (BHCG) Negative (Negative); Pregu Control Background? CLEAR/WHITE (CLR/WHITE); Pregu Control Bar Appear? YES (CONTROL BAR); Specific Gravity 1.025 (1.002-1.036)
[2019-08-05] MEDS ORDERED: Ibuprofen 800 MG TAB ONE (04:34)
== END 2019-08-05 04:36 | disposition home or self-care (01) ==
LOC: ERS 03:55
DX: R10.9 Unspecified abdominal pain (principal); D64.9 Anemia, unspecified
CPT/HCPCS: 81003; 81015; 81025; 99284

== ENCOUNTER 2019-08-16 19:20 | Emergency (ER) | payer SELFPAY ==
[2019-08-16] MEDS ORDERED: Lidocaine 1% w/Epinephrine 1:100K 20 ML VIAL ONE (19:51)
== END 2019-08-16 21:10 | disposition home or self-care (01) ==
LOC: ERS 19:20
DX: L02.11 Cutaneous abscess of neck (principal); D64.9 Anemia, unspecified; Z79.899 Other long term (current) drug therapy
CPT/HCPCS: 10060

== ENCOUNTER 2019-11-03 20:27 | Emergency (ER) | payer SELFPAY ==
--- NOTE | 2019-11-03 21:37 | RAD ---
LEFT ANKLE THREE VIEWS: 11/03/19 HISTORY: Injury, left ankle pain. FINDINGS/IMPRESSION: Soft tissue swelling is present. The ankle mortise is maintained. No acute fracture or dislocation is seen. Posterior plantar calcaneal spurs are present. POS: CADENCEA
[2019-11-03] MEDS ORDERED: HYDROcodone/Acetaminophen 5/325 mg Tablet ONE (21:43)
== END 2019-11-03 22:24 | disposition home or self-care (01) ==
LOC: ERS 20:27
DX: S93.402A Sprain of unspecified ligament of left ankle, initial encounter (principal); D64.9 Anemia, unspecified; Z79.899 Other long term (current) drug therapy; X50.1XXA Overexertion from prolonged static or awkward postures, initial encounter

== ENCOUNTER 2020-01-02 11:09 | Emergency (ER) | payer SELFPAY ==
[2020-01-02] MEDS ORDERED: Ketorolac Tromethamine 30 MG/ML VIAL ONE (11:32)
== END 2020-01-02 12:05 | disposition home or self-care (01) ==
LOC: ERS 11:09
DX: M54.5 Low back pain (principal); D64.9 Anemia, unspecified
CPT/HCPCS: 96372; 99283; J1885

== ENCOUNTER 2020-02-13 23:25 | Emergency (ER) | payer SELFPAY ==
[2020-02-14 00:16] LABS: #Basophils 0.1 thou/uL (0.0-0.2); #Eosinphils 0.2 thou/uL (0.0-0.7); #Lymphocytes 2.6 thou/uL (1.20-3.40); #Monocytes 0.9 thou/uL (0.11-0.59); #Neutrophils 6.1 thou/uL (1.40-6.50); %Basophils 0.7 % (0.0-1.0); %Eosinophils 1.9 % (0.0-10.0); %Monocytes 9.1 % (0.0-10.0); %Neutrophils 62.4 % (42.0-75.0); Hemoglobin 11.3 g/dL (12.0-16.0); Mean Corpuscular Hemoglobin 25.7 pg (27.0-31.0); Mean Corpuscular Volume 82.8 fL (78.0-98.0); Mean Platelet Volume 8.3 fL (7.4-10.4); Platelet Count 266 thou/uL (130-400); RBC Distribution Width 15.7 % (11.5-14.5); Red Blood Cell (RBC) Count 4.41 mill/uL (4.20-5.40); White Blood Cell (WBC) Count 9.8 thou/uL (4.8-10.8)
[2020-02-14 00:37] LABS: ALT (SGPT) 10 U/L (8-55); AST (SGOT) 11 U/L (5-34); Albumin 3.6 g/dL (3.5-5.0); Alkaline Phosphatase 106 U/L (40-110); Anion Gap 10 mmol/L (10-20); BUN (Urea Nitrogen) 10 mg/dL (7.0-18.7); Bilirubin, Total 0.2 mg/dL (0.2-1.2); Calc. Creatinine Clearance 0 mL/min (70-130); Calcium 8.9 mg/dL (7.8-10.44); Carbon Dioxide 22 mmol/L (22-29); Chloride 110 mmol/L (98-107); Estimated GFR-MDRD Greater than 90; Globulin 3.6 g/dL (2.4-3.5); Glucose 87 mg/dL (70-105); Potassium 4.1 mmol/L (3.5-5.1); Protein, Total 7.2 g/dL (6.0-8.3); Sodium 138 mmol/L (136-145)
[2020-02-14 00:43] LABS: Bacteria/HPF None Seen HPF (None Seen); Bilirubin Negative (Negative); Blood, Urine Trace (Negative); Clarity Clear (Clear); Glucose, Urine (Dipstick) Normal (Negative); Ketone, Urine Negative (Negative); Leukocyte Negative Leu/uL (Negative); Nitrite Negative (Negative); Pregnancy Test - Urine (BHCG) Negative (Negative); Pregu Control Background? CLEAR/WHITE (CLR/WHITE); Pregu Control Bar Appear? YES (CONTROL BAR); Protein, Urine (Dipstick) Negative (Neg-Trace); RBC/HPF 0-3 HPF (0-3); Specific Gravity 1.017 (1.002-1.036); Specific Gravity, Urine 1.017 (1.002-1.036); Urobilinogen Normal mg/dL (Less than 2); WBC/HPF 0-3 HPF (0-3)
== END 2020-02-14 03:15 | disposition home or self-care (01) ==
LOC: ERS 23:25
DX: M54.5 Low back pain (principal); R10.9 Unspecified abdominal pain; D64.9 Anemia, unspecified
CPT/HCPCS: 36415; 80053; 81003; 81015; 81025; 85025; 99283

== ENCOUNTER 2020-03-12 10:32 | Emergency (ER) | payer SELFPAY | END 2020-03-12 12:50 | disposition home or self-care (01) | LOC: ERS 10:32 | DX: L03.221 Cellulitis of neck (principal); L02.11 Cutaneous abscess of neck; D64.9 Anemia, unspecified | CPT/HCPCS: 99283 ==

== ENCOUNTER 2020-06-10 22:54 | Emergency (ER) | payer SELFPAY ==
[2020-06-10] MEDS ORDERED: Ondansetron PF 4 MG/2 ML Vial ONE (23:33)
[2020-06-10] MEDS ORDERED: Morphine 4 MG/ML VIAL ONE (23:33)
[2020-06-10 23:41] LABS: #Basophils 0.1 thou/uL (0.0-0.2); #Eosinphils 0.1 thou/uL (0.0-0.7); #Lymphocytes 3.2 thou/uL (1.20-3.40); #Monocytes 0.8 thou/uL (0.11-0.59); #Neutrophils 5.9 thou/uL (1.40-6.50); %Basophils 0.9 % (0.0-1.0); %Eosinophils 1.4 % (0.0-10.0); %Monocytes 7.4 % (0.0-10.0); %Neutrophils 58.3 % (42.0-75.0); Hemoglobin 12.1 g/dL (12.0-16.0); Mean Corpuscular HGB CONC 32.1 g/dL (32.0-36.0); Mean Corpuscular Hemoglobin 26.6 pg (27.0-31.0); Mean Corpuscular Volume 82.8 fL (78.0-98.0); Platelet Count 310 thou/uL (130-400); RBC Distribution Width 16.2 % (11.5-14.5); Red Blood Cell (RBC) Count 4.53 mill/uL (4.20-5.40); White Blood Cell (WBC) Count 10.1 thou/uL (4.8-10.8)
[2020-06-10 23:55] LABS: BHCG - Serum Negative (NEGATIVE); Pregs Control Background? CLEAR/WHITE (CLR/WHITE); Pregs Control Bar Appear? YES (CONTROL BAR)
[2020-06-11] LABS: ALT (SGPT) 19 U/L (8-55); AST (SGOT) 17 U/L (5-34); Albumin 3.8 g/dL (3.5-5.0); Alkaline Phosphatase 103 U/L (40-110); Anion Gap 13 mmol/L (10-20); BUN (Urea Nitrogen) 12 mg/dL (7.0-18.7); Bilirubin, Total 0.3 mg/dL (0.2-1.2); Calc. Creatinine Clearance 0 mL/min (70-130); Calcium 8.9 mg/dL (7.8-10.44); Carbon Dioxide 23 mmol/L (22-29); Chloride 106 mmol/L (98-107); Glucose 116 mg/dL (70-105); Potassium 3.9 mmol/L (3.5-5.1); Protein, Total 7.8 g/dL (6.0-8.3); Sodium 138 mmol/L (136-145)
[2020-06-11 00:03] LABS: CKMB 0.8 ng/mL (0-6.6)
[2020-06-11 00:14] LABS: Troponin I 0.011 ng/mL (< 0.028)
[2020-06-11 00:37] LABS: Bacteria/HPF 1+ HPF (None Seen); Bilirubin Negative (Negative); Blood, Urine 2+ (Negative); Clarity Clear (Clear); Glucose, Urine (Dipstick) Normal (Negative); Ketone, Urine Trace mg/dL (Negative); Leukocyte 500 Leu/uL (Negative); Nitrite Negative (Negative); Protein, Urine (Dipstick) 20 mg/dL (Neg-Trace); Specific Gravity, Urine 1.031 (1.002-1.036); WBC/HPF 21-50 HPF (0-3); pH, Urine 5.5 (5.0-9.0)
[2020-06-11] MEDS ORDERED: Ketorolac Tromethamine 30 MG/ML VIAL ONE (00:53)
== END 2020-06-11 00:51 | disposition home or self-care (01) ==
LOC: ERS 22:54
DX: N12 Tubulo-interstitial nephritis, not specified as acute or chronic (principal)
CPT/HCPCS: 71045; 74176; 80053; 81003; 81015; 82553; 84484; 84703; 85025; 93005; 96374; 96375; J1885; J2270; J2405

== ENCOUNTER 2020-06-18 09:54 | Emergency (ER) | payer SELFPAY ==
[~2020-06-18 09:54] MED LIST changes: -ISOVUE-370 76%-LOCM 1 ML ONE; +Iopamidol-370 76% 500 ML 1 ML ONE
[2020-06-18 10:31] LABS: #Eosinphils 0.1 thou/uL (0.0-0.7); #Lymphocytes 2.3 thou/uL (1.20-3.40); #Monocytes 0.9 thou/uL (0.11-0.59); #Neutrophils 6.1 thou/uL (1.40-6.50); %Basophils 0.2 % (0.0-1.0); %Eosinophils 1.1 % (0.0-10.0); %Lymphocytes 24.2 % (21.0-51.0); %Neutrophils 65.4 % (42.0-75.0); Hemoglobin 12.6 g/dL (12.0-16.0); Mean Corpuscular HGB CONC 30.5 g/dL (32.0-36.0); Mean Corpuscular Hemoglobin 25.5 pg (27.0-31.0); Mean Corpuscular Volume 83.6 fL (78.0-98.0); Mean Platelet Volume 8.3 fL (7.4-10.4); Platelet Count 293 thou/uL (130-400); RBC Distribution Width 15.6 % (11.5-14.5); Red Blood Cell (RBC) Count 4.93 mill/uL (4.20-5.40); White Blood Cell (WBC) Count 9.4 thou/uL (4.8-10.8)
[2020-06-18 10:40] LABS: ALT (SGPT) 15 U/L (8-55); AST (SGOT) 11 U/L (5-34); Albumin 3.9 g/dL (3.5-5.0); Alkaline Phosphatase 103 U/L (40-110); Anion Gap 15 mmol/L (10-20); BUN (Urea Nitrogen) 9 mg/dL (7.0-18.7); Bilirubin, Total 0.3 mg/dL (0.2-1.2); Calc. Creatinine Clearance 0 mL/min (70-130); Calcium 8.9 mg/dL (7.8-10.44); Carbon Dioxide 21 mmol/L (22-29); Chloride 106 mmol/L (98-107); Globulin 3.9 g/dL (2.4-3.5); Glucose 97 mg/dL (70-105); Potassium 4.1 mmol/L (3.5-5.1); Protein, Total 7.8 g/dL (6.0-8.3); Sodium 138 mmol/L (136-145)
[2020-06-18 11:02] LABS: CK (CPK) 68 U/L (29-168); Lipase 23 U/L (8-78)
[2020-06-18 11:10] LABS: BHCG - Serum Negative (NEGATIVE); Pregs Control Background? CLEAR/WHITE (CLR/WHITE); Pregs Control Bar Appear? YES (CONTROL BAR)
[2020-06-18] MEDS ORDERED: Ondansetron PF 4 MG/2 ML Vial ONE (11:33)
[2020-06-18] MEDS ORDERED: Fentanyl 100 MCG/2 ML VIAL ONE (11:33)
[2020-06-18] MEDS ORDERED: Ketorolac Tromethamine 30 MG/ML VIAL ONE (11:34)
[2020-06-18 12:03] LABS: Bilirubin Negative (Negative); Blood, Urine 3+ (Negative); Clarity Turbid (Clear); Glucose, Urine (Dipstick) Normal (Negative); Ketone, Urine Trace mg/dL (Negative); Leukocyte Negative Leu/uL (Negative); Nitrite Negative (Negative); Protein, Urine (Dipstick) 70 mg/dL (Neg-Trace); RBC/HPF Greater than 50 HPF (0-3); Specific Gravity, Urine 1.037 (1.002-1.036); WBC/HPF 0-3 HPF (0-3); pH, Urine 5.5 (5.0-9.0)
[2020-06-18 12:04] LABS: Bacteria/HPF Rare-Few HPF (None Seen)
--- NOTE | 2020-06-18 13:42 | CT ---
CT ABDOMEN AND PELVIS WITH IV CONTRAST: Date: 06/18/2020 HISTORY: Abdominal pain on the right side and vomiting. COMPARISON: 11/14/2017 and 06/11/2020. FINDINGS: The lung bases are clear. The liver, spleen, pancreas, and adrenal glands are normal. There are a cou ple of tiny low density lesions in the kidneys, likely cysts. No calcified gallstones are seen. No fr ee air, free fluid, or lymphadenopathy noted in the abdomen or pelvis. The small bowel loops are not abnormally dilated. A normal appearing appendix is present. Uterus and ovaries are again seen with stable hypodensity in the uterus. The aorta is of normal calib er. There are mild degenerative in the spine. IMPRESSION: No evidence of acute process. POS: OFF
== END 2020-06-18 13:20 | disposition home or self-care (01) ==
LOC: ERS 09:54
DX: R10.9 Unspecified abdominal pain (principal); R11.2 Nausea with vomiting, unspecified; D64.9 Anemia, unspecified
CPT/HCPCS: 36415; 74177; 80053; 81003; 81015; 82550; 83690; 84484; 84703; 85025; 93005; 96374; 96375; J1885; J2405; J3010; Q9967

== ENCOUNTER 2020-07-31 01:43 | Emergency (ER) | payer MEDICAID, SELFPAY ==
[2020-07-31] MEDS ORDERED: Morphine 2 MG/ML VIAL ONE (02:21)
[2020-07-31] MEDS ORDERED: Ondansetron PF 4 MG/2 ML Vial ONE (02:21)
[2020-07-31 02:25] LABS: BHCG - Serum Negative (NEGATIVE); Pregs Control Background? CLEAR/WHITE (CLR/WHITE); Pregs Control Bar Appear? YES (CONTROL BAR)
[2020-07-31 02:32] LABS: #Basophils 0.1 thou/uL (0.0-0.2); #Eosinphils 0.1 thou/uL (0.0-0.7); #Monocytes 0.8 thou/uL (0.11-0.59); #Neutrophils 6.7 thou/uL (1.40-6.50); %Basophils 1.1 % (0.0-1.0); %Eosinophils 0.8 % (0.0-10.0); %Lymphocytes 20.7 % (21.0-51.0); %Monocytes 8.1 % (0.0-10.0); %Neutrophils 69.3 % (42.0-75.0); Hemoglobin 11.4 g/dL (12.0-16.0); Mean Corpuscular HGB CONC 32.6 g/dL (32.0-36.0); Mean Corpuscular Hemoglobin 27.3 pg (27.0-31.0); Mean Corpuscular Volume 83.6 fL (78.0-98.0); Mean Platelet Volume 8.1 fL (7.4-10.4); Platelet Count 316 thou/uL (130-400); RBC Distribution Width 14.8 % (11.5-14.5); Red Blood Cell (RBC) Count 4.17 mill/uL (4.20-5.40); White Blood Cell (WBC) Count 9.7 thou/uL (4.8-10.8)
[2020-07-31 02:46] LABS: ALT (SGPT) 21 U/L (8-55); AST (SGOT) 24 U/L (5-34); Alkaline Phosphatase 108 U/L (40-110); Anion Gap 16 mmol/L (10-20); BUN (Urea Nitrogen) 13 mg/dL (7.0-18.7); Bilirubin, Total 0.4 mg/dL (0.2-1.2); Calc. Creatinine Clearance 0 mL/min (70-130); Carbon Dioxide 19 mmol/L (22-29); Chloride 106 mmol/L (98-107); Globulin 4.4 g/dL (2.4-3.5); Glucose 101 mg/dL (70-105); Lipase 33 U/L (8-78); Potassium 4.1 mmol/L (3.5-5.1); Protein, Total 8.4 g/dL (6.0-8.3); Sodium 137 mmol/L (136-145)
== END 2020-07-31 03:52 | disposition home or self-care (01) ==
LOC: ERS 01:43
DX: K80.70 Calculus of gallbladder and bile duct without cholecystitis without obstruction (principal); D64.9 Anemia, unspecified
CPT/HCPCS: 76705; 80053; 83690; 84703; 85025; 96374; 96375; J2270; J2405

== ENCOUNTER 2020-08-19 20:55 | Inpatient (IN) | payer MEDICAID ==
[2020-08-19 22:43] LABS: #Eosinphils 0.2 thou/uL (0.0-0.7); #Lymphocytes 2.6 thou/uL (1.20-3.40); #Monocytes 1.2 thou/uL (0.11-0.59); #Neutrophils 9.8 thou/uL (1.40-6.50); %Basophils 0.2 % (0.0-1.0); %Eosinophils 1.4 % (0.0-10.0); %Lymphocytes 18.6 % (21.0-51.0); %Monocytes 8.7 % (0.0-10.0); %Neutrophils 71.2 % (42.0-75.0); Hemoglobin 11.8 g/dL (12.0-16.0); Mean Corpuscular HGB CONC 32.3 g/dL (32.0-36.0); Mean Corpuscular Volume 83.6 fL (78.0-98.0); Mean Platelet Volume 8.1 fL (7.4-10.4); Platelet Count 290 thou/uL (130-400); RBC Distribution Width 14.6 % (11.5-14.5); Red Blood Cell (RBC) Count 4.36 mill/uL (4.20-5.40); White Blood Cell (WBC) Count 13.7 thou/uL (4.8-10.8)
[2020-08-19] MEDS ORDERED: Morphine 4 MG/ML VIAL ONE (22:57)
[2020-08-19] MEDS ORDERED: Piperacillin/Tazobactam 4.5 GM VIAL ONE (22:58)
[2020-08-19] MEDS ORDERED: Ondansetron PF 4 MG/2 ML Vial ONE (22:58)
[2020-08-19 22:59] LABS: ALT (SGPT) 12 U/L (8-55); AST (SGOT) 11 U/L (5-34); Albumin 4.1 g/dL (3.5-5.0); Alkaline Phosphatase 104 U/L (40-110); Anion Gap 13 mmol/L (10-20); BUN (Urea Nitrogen) 11 mg/dL (7.0-18.7); Bilirubin, Total 0.3 mg/dL (0.2-1.2); Calc. Creatinine Clearance 0 mL/min (70-130); Calcium 8.8 mg/dL (7.8-10.44); Carbon Dioxide 24 mmol/L (22-29); Chloride 108 mmol/L (98-107); Glucose 104 mg/dL (70-105); Lipase 30 U/L (8-78); Potassium 4.2 mmol/L (3.5-5.1); Protein, Total 8.1 g/dL (6.0-8.3); Sodium 141 mmol/L (136-145)
[2020-08-19] MEDS ORDERED: Promethazine HCl 25 MG/ML VIAL ONE (23:44)
[2020-08-20] MEDS ORDERED: Morphine 4 MG/ML VIAL ONE (00:08)
[2020-08-20] MEDS ORDERED: Morphine 2 MG/ML VIAL SLOW IVP PRN ×2 (00:48→09:31)
[2020-08-20] MEDS ORDERED: Morphine 4 MG/ML VIAL SLOW IVP PRN ×2 (00:48→09:31)
[2020-08-20 00:57] VITALS: BMI 38.2
[2020-08-20] MEDS ORDERED: Ondansetron PF 4 MG/2 ML Vial IVP PRN ×2 (01:00→09:31)
[2020-08-20] MEDS ORDERED: Ondansetron ODT 4 MG TAB SL PRN (01:00)
[2020-08-20] MEDS: Sodium Chloride 0.9% 1,000 ML IV SCH ×2 (01:23→05:23)
[2020-08-20 04:42] LABS: SARS-CoV-2 PCR by NAA Not Detected (NotDetected)
[2020-08-20] MEDS ORDERED: Lidocaine 1% w/Epinephrine 1:100K 20 ML VIAL ONE (07:26)
[2020-08-20] MEDS ORDERED: Bupivacaine 0.25% HCL 30 ML VIAL ONE (07:26)
[2020-08-20] MEDS ORDERED: Glycopyrrolate 0.2 MG/ML 5 ML SYRINGE ONE (07:41)
[2020-08-20] MEDS ORDERED: Ondansetron PF 4 MG/2 ML Vial ONE (07:41)
[2020-08-20] MEDS ORDERED: Fentanyl 100 MCG/2 ML VIAL ONE ×2 (07:41→09:27)
[2020-08-20] MEDS ORDERED: Rocuronium Bromide 10 MG/ML (10ML VIAL) ONE (07:41)
[2020-08-20] MEDS ORDERED: diphenhydrAMINE 50 MG/ML VIAL ONE (07:41)
[2020-08-20] MEDS ORDERED: Ketorolac Tromethamine 30 MG/ML VIAL ONE (07:41)
[2020-08-20] MEDS ORDERED: Lidocaine 1% PF 5 ML VIAL ONE (07:41)
[2020-08-20] MEDS ORDERED: Dexamethasone 20 MG/5 ML VIAL ONE (07:41)
[2020-08-20] MEDS ORDERED: Succinylcholine 200 MG/10 ml SYRINGE FS ONE (07:41)
[2020-08-20] MEDS ORDERED: PROPOFOL 200 MG/20 ML VIAL ONE (07:41)
[2020-08-20] MEDS ORDERED: Piperacillin/Tazobactam 3.375 GM VIAL ONE (07:53)
[2020-08-20] MEDS ORDERED: Sodium Chloride 0.9% 100 ML ONE (07:53)
[2020-08-20] MEDS ORDERED: Midazolam HCl 2 mg/2 ml Vial ONE (08:08)
[2020-08-20] MEDS ORDERED: Famotidine/PF 20 mg/2ml Vial ONE (08:08)
[2020-08-20] MEDS ORDERED: Promethazine HCl 25 MG/ML VIAL IM PRN ×2 (09:01→09:31)
[2020-08-20] MEDS ORDERED: Ondansetron HCl/PF 4 MG/2 ML Vial IVP PRN (09:01)
[2020-08-20] MEDS ORDERED: Promethazine HCl 25 MG/ML VIAL SLOW IVP PRN (09:01)
[2020-08-20] MEDS ORDERED: Mag-Al 1200 mg/1200 mg/30 ML UDCUP PO PRN (09:31)
[2020-08-20] MEDS ORDERED: hydrALAZINE 20 MG/ML VIAL SLOW IVP PRN (09:31)
[2020-08-20] MEDS ORDERED: D5 1/2 NS w/20 mEq KCL 1,000 ML IV SCH (09:31)
[2020-08-20] MEDS ORDERED: Dextrose 50% Abboject 50 ML SYRINGE SLOW IVP PRN (09:31)
[2020-08-20] MEDS ORDERED: HYDROcodone/Acetaminophen 10/325 mg Tablet PO PRN (09:31)
[2020-08-20] MEDS ORDERED: Dextrose 5% in Water 1,000 ML IV PRN (09:31)
[2020-08-20] MEDS ORDERED: Calcium Carbonate 500 MG ChewTAB PO PRN (09:31)
[2020-08-20] MEDS ORDERED: Piperacillin/Tazobactam 3.375 GM in Sodium Chloride 0.9% 100 ML IVPB SCH (10:30)
[2020-08-20 16:35] VITALS: BP 138/81; TEMP 97.8
[2020-08-20] MEDS ORDERED: Famotidine 20 MG TAB PO SCH (21:00)
[2020-08-20] MEDS ORDERED: Famotidine/PF 20 mg/2ml Vial SLOW IVP SCH (21:00)
== END 2020-08-20 18:53 | disposition home or self-care (01) | DRG 419 ==
LOC: ERS 20:55 → SURG B 23:09
PROVIDERS: ADMIT Surgery; ATTEND Surgery
PROC: 0FT44ZZ Resection of Gallbladder, Percutaneous Endoscopic Approach (ICD-10-PCS; principal; 2020-08-20)
DX: K81.0 Acute cholecystitis (principal); D64.9 Anemia, unspecified; Z79.899 Other long term (current) drug therapy; Z20.822 Contact with and (suspected) exposure to COVID-19
CPT/HCPCS: 36415; 76705; 80053; 83690; 85025; 87635; 88304; 96365; 96375; 96376; J1100; J1200; J1885; J2250; J2270; J2405; J2543; J2550; J2704; J3010; J3490; S0020; S0028; U0003; U0005

== ENCOUNTER 2020-11-17 20:57 | Emergency (ER) | payer MEDICAID | END 2020-11-17 22:27 | disposition left against medical advice (07) | LOC: ERS 20:57 | DX: Z53.21 Procedure and treatment not carried out due to patient leaving prior to being seen by health care provider (principal) ==

== ENCOUNTER 2021-01-15 15:57 | Emergency (ER) | payer MEDICAID, SELFPAY ==
[2021-01-15 23:02] LABS: SARS-CoV-2 PCR by NAA Not Detected (NotDetected)
== END 2021-01-15 16:32 | disposition home or self-care (01) ==
LOC: ERS 15:57
DX: U07.1 COVID-19 (principal)
CPT/HCPCS: 99283; U0003; U0005

== ENCOUNTER 2021-02-27 15:51 | Emergency (ER) | payer SELFPAY ==
[2021-02-27 16:34] LABS: Hemoglobin 12.4 g/dL (12.0-16.0); Mean Corpuscular HGB CONC 32.8 g/dL (32.0-36.0); Mean Corpuscular Volume 76.1 fL (78.0-98.0); Mean Platelet Volume 9.7 fL (7.4-10.4); Platelet Count 248 thou/uL (130-400); RBC Distribution Width 17.9 % (11.5-14.5); Red Blood Cell (RBC) Count 4.98 mill/uL (4.20-5.40); White Blood Cell (WBC) Count 17.4 thou/uL (4.8-10.8)
[2021-02-27] MEDS ORDERED: Ondansetron PF 4 MG/2 ML Vial ONE ×2 (16:43→16:46)
[2021-02-27 16:46] LABS: INR-International Normal Ratio 1.1
[2021-02-27] MEDS ORDERED: cefTRIAXone\\ROCEPHIN 1 GM VIAL ONE (16:46)
[2021-02-27 16:47] LABS: PTT 30.4 sec (22.9-36.1)
[2021-02-27 16:55] LABS: Anisocytosis SLIGHT = 6-15 cells (100X) (0-5/hpf); Band 13 % (5-11); Hypochromia SLIGHT = 6-15 cells (100X) (0-5/hpf); Lymphocytes 9 % (21-51); MDiff Complete? YES; Microcytosis SLIGHT = 6-15 cells (100X) (0-5/hpf); Monocytes 2 % (0-10); Neutrophil 76 % (42-75); Ovalocytes SLIGHT = 2-5 cells (100X) (0-1/hpf); Platelet Morphology Comment Appears Adequate; Polychromasia SLIGHT = 2-3 cells (100X) (0-2/hpf)
[2021-02-27 16:56] LABS: ALT (SGPT) 15 U/L (8-55); AST (SGOT) 13 U/L (5-34); Albumin 4.3 g/dL (3.5-5.0); Alkaline Phosphatase 83 U/L (40-110); Anion Gap 18 mmol/L (10-20); BUN (Urea Nitrogen) 7 mg/dL (7.0-18.7); Calc. Creatinine Clearance 0 mL/min (70-130); Calcium 9.3 mg/dL (7.8-10.44); Carbon Dioxide 21 mmol/L (22-29); Chloride 100 mmol/L (98-107); Globulin 3.7 g/dL (2.4-3.5); Glucose 99 mg/dL (70-105); Potassium 3.7 mmol/L (3.5-5.1); Sodium 135 mmol/L (136-145)
[2021-02-27] MEDS ORDERED: Ketorolac Tromethamine 30 MG/ML VIAL ONE (17:07)
[2021-02-27] MEDS ORDERED: Morphine 4 MG/ML VIAL ONE (17:07)
[2021-02-27 17:36] LABS: Bilirubin Negative (Negative); Blood, Urine 3+ (Negative); Clarity Turbid (Clear); Glucose, Urine (Dipstick) Normal (Negative); Ketone, Urine Negative (Negative); Leukocyte 250 Leu/uL (Negative); Nitrite Negative (Negative); Protein, Urine (Dipstick) 200 mg/dL (Neg-Trace); Specific Gravity, Urine 1.031 (1.002-1.036); Urobilinogen Normal mg/dL (Less than 2)
[2021-02-27 17:38] LABS: BHCG - Serum Negative (NEGATIVE); Pregs Control Background? CLEAR/WHITE (CLR/WHITE); Pregs Control Bar Appear? YES (CONTROL BAR)
[2021-02-27 17:48] LABS: RBC/HPF 21-50 HPF (0-3)
[2021-02-27 17:49] LABS: Bacteria/HPF 2+ HPF (None Seen); Squamous Epithelial 21-50 HPF (0-3)
[2021-02-27 18:12] LABS: SARS-CoV-2 NAA Rapid Test Not Detected (NotDetected)
== END 2021-02-27 19:10 | disposition home or self-care (01) ==
LOC: ERS 15:51
DX: N10 Acute pyelonephritis (principal); D64.9 Anemia, unspecified; Z20.822 Contact with and (suspected) exposure to COVID-19
CPT/HCPCS: 71045; 74177; 80053; 81003; 81015; 83605; 84703; 85025; 85610; 85730; 87040; 87086; 96365; 96366; 96375; J0696; J1885; J2270; J2405; U0002

== ENCOUNTER 2021-06-27 17:49 | Emergency (ER) | payer SELFPAY, OTHER ==
[2021-06-27 19:07] LABS: MONO NEGATIVE CONTROL ZONE White (Negative) (White); MONO POSITIVE CONTROL Pink Line (Positive) (PINK/RED); Mononucleosis NEGATIVE (NEGATIVE)
[2021-06-27] MEDS ORDERED: Dexamethasone 10 MG/ML VIAL ONE (19:28)
[2021-06-27 23:28] LABS: SARS-CoV-2 PCR by NAA Not Detected (NotDetected)
== END 2021-06-27 19:37 | disposition home or self-care (01) ==
LOC: ERS 17:49
DX: J02.9 Acute pharyngitis, unspecified (principal); D64.9 Anemia, unspecified; Z20.822 Contact with and (suspected) exposure to COVID-19
CPT/HCPCS: 36415; 71045; 86308; 87081; 87430; J1100; U0003; U0005

== ENCOUNTER 2021-07-06 14:12 | Emergency (ER) | payer OTHER, SELFPAY ==
[2021-07-06] MEDS ORDERED: Acetaminophen 500 MG TAB ONE (15:21)
[2021-07-06 16:13] LABS: #Eosinphils 0.1 thou/uL (0.0-0.7); #Lymphocytes 0.9 thou/uL (1.20-3.40); #Monocytes 0.5 thou/uL (0.11-0.59); %Eosinophils 0.6 % (0.0-10.0); %Lymphocytes 9.2 % (21.0-51.0); %Monocytes 5.5 % (0.0-10.0); %Neutrophils 84.8 % (42.0-75.0); Hemoglobin 10.4 g/dL (12.0-16.0); Mean Corpuscular HGB CONC 31.5 g/dL (32.0-36.0); Mean Corpuscular Hemoglobin 25.2 pg (27.0-31.0); Mean Corpuscular Volume 79.8 fL (78.0-98.0); Mean Platelet Volume 7.9 fL (7.4-10.4); Platelet Count 273 thou/uL (130-400); RBC Distribution Width 15.4 % (11.5-14.5); Red Blood Cell (RBC) Count 4.15 mill/uL (4.20-5.40); White Blood Cell (WBC) Count 9.4 thou/uL (4.8-10.8)
[2021-07-06 16:30] LABS: ALT (SGPT) 8 U/L (8-55); AST (SGOT) 10 U/L (5-34); Albumin 3.7 g/dL (3.5-5.0); Alkaline Phosphatase 69 U/L (40-110); Anion Gap 13 mmol/L (10-20); BUN (Urea Nitrogen) 8 mg/dL (7.0-18.7); Bilirubin, Total 0.5 mg/dL (0.2-1.2); Calc. Creatinine Clearance 0 mL/min (70-130); Calcium 8.5 mg/dL (7.8-10.44); Carbon Dioxide 18 mmol/L (22-29); Chloride 106 mmol/L (98-107); Globulin 3.5 g/dL (2.4-3.5); Glucose 109 mg/dL (70-105); Potassium 3.4 mmol/L (3.5-5.1); Protein, Total 7.2 g/dL (6.0-8.3); Sodium 134 mmol/L (136-145)
[2021-07-06] MEDS ORDERED: Ibuprofen 800 MG TAB ONE (17:17)
[2021-07-06 17:29] LABS: Bacteria/HPF None Seen HPF (None Seen); Bilirubin Negative (Negative); Blood, Urine Trace (Negative); Clarity Clear (Clear); Glucose, Urine (Dipstick) Normal (Negative); Ketone, Urine Negative (Negative); Leukocyte Negative Leu/uL (Negative); Nitrite Negative (Negative); Protein, Urine (Dipstick) 10 mg/dL (Neg-Trace); RBC/HPF 0-3 HPF (0-3); Specific Gravity, Urine 1.028 (1.002-1.036); Squamous Epithelial 0-3 HPF (0-3); Urobilinogen Normal mg/dL (Less than 2); WBC/HPF 0-3 HPF (0-3); pH, Urine 5.5 (5.0-9.0)
[2021-07-06 18:11] LABS: BHCG - Serum Negative (NEGATIVE); Pregs Control Background? CLEAR/WHITE (CLR/WHITE); Pregs Control Bar Appear? YES (CONTROL BAR)
[2021-07-06 20:19] LABS: SARS-CoV-2 PCR by NAA Not Detected (NotDetected)
== END 2021-07-06 19:43 ==
LOC: ERS 14:12
DX: R10.30 Lower abdominal pain, unspecified (principal); B34.9 Viral infection, unspecified; Z20.822 Contact with and (suspected) exposure to COVID-19; D64.9 Anemia, unspecified
CPT/HCPCS: 71045; 74176; 80053; 81003; 81015; 82550; 84484; 84703; 85025; 87081; 87430; 87804; 93005; U0003; U0005

== ENCOUNTER 2021-10-08 21:48 | Emergency (ER) | payer SELFPAY ==
[2021-10-08] MEDS ORDERED: Benzocaine 20% Spray 60 ML CAN ONE (22:23)
[2021-10-08] MEDS ORDERED: Ketorolac Tromethamine 30 MG/ML VIAL ONE (22:33)
== END 2021-10-08 22:45 | disposition home or self-care (01) ==
LOC: ERS 21:48
DX: L03.012 Cellulitis of left finger (principal); D64.9 Anemia, unspecified
CPT/HCPCS: 10060; 96372; J1885

== ENCOUNTER 2021-11-05 21:31 | Emergency (ER) | payer SELFPAY ==
[2021-11-05 22:10] LABS: #Eosinphils 0.1 thou/uL (0.0-0.7); #Lymphocytes 2.1 thou/uL (1.20-3.40); #Monocytes 0.7 thou/uL (0.11-0.59); #Neutrophils 4.8 thou/uL (1.40-6.50); %Basophils 0.5 % (0.0-1.0); %Eosinophils 1.5 % (0.0-10.0); %Lymphocytes 26.9 % (21.0-51.0); %Monocytes 8.6 % (0.0-10.0); %Neutrophils 62.5 % (42.0-75.0); Hemoglobin 6.8 g/dL (12.0-16.0); Mean Corpuscular HGB CONC 27.7 g/dL (32.0-36.0); Mean Corpuscular Hemoglobin 18.9 pg (27.0-31.0); Mean Corpuscular Volume 68.4 fL (78.0-98.0); Mean Platelet Volume 10.6 fL (7.4-10.4); Platelet Count 383 thou/uL (130-400); RBC Distribution Width 18.1 % (11.5-14.5); Red Blood Cell (RBC) Count 3.61 mill/uL (4.20-5.40); White Blood Cell (WBC) Count 7.7 thou/uL (4.8-10.8)
[2021-11-05 22:16] LABS: BHCG - Serum Negative (NEGATIVE); Pregs Control Background? CLEAR/WHITE (CLR/WHITE); Pregs Control Bar Appear? YES (CONTROL BAR)
[2021-11-05 22:29] LABS: ALT (SGPT) 7 U/L (8-55); AST (SGOT) 9 U/L (5-34); Albumin 3.7 g/dL (3.5-5.0); Alkaline Phosphatase 79 U/L (40-110); Anion Gap 14 mmol/L (10-20); BUN (Urea Nitrogen) 6 mg/dL (7.0-18.7); Bilirubin, Total 0.4 mg/dL (0.2-1.2); Calc. Creatinine Clearance 0 mL/min (70-130); Calcium 8.5 mg/dL (7.8-10.44); Carbon Dioxide 19 mmol/L (22-29); Chloride 111 mmol/L (98-107); Globulin 3.3 g/dL (2.4-3.5); Glucose 117 mg/dL (70-105); Lipase 26 U/L (8-78); Potassium 3.5 mmol/L (3.5-5.1); Sodium 140 mmol/L (136-145)
[2021-11-05 22:31] LABS: Anisocytosis SLIGHT = 6-15 cells (100X) (0-5/hpf); Band 1 % (5-11); Elliptocytes SLIGHT = 2-5 cells (100X) (0-1/hpf); Eosinophils 2 % (0-10); Hypochromia MODERATE=16-30 cells (100X) (0-5/hpf); Lymphocytes 29 % (21-51); MDiff Complete? YES; Microcytosis SLIGHT = 6-15 cells (100X) (0-5/hpf); Monocytes 6 % (0-10); Neutrophil 61 % (42-75); Ovalocytes SLIGHT = 2-5 cells (100X) (0-1/hpf); Platelet Morphology Comment Appears Adequate; Polychromasia SLIGHT = 2-3 cells (100X) (0-2/hpf); Reflex for Review?? YES; Tear Drops SLIGHT = 2-5 cells (100X) (0-1/hpf)
[2021-11-05] MEDS ORDERED: Morphine 4 MG/ML VIAL ONE (22:59)
[2021-11-05 23:31] LABS: Bilirubin Negative (Negative); Blood, Urine 3+ (Negative); Clarity Turbid (Clear); Glucose, Urine (Dipstick) Normal (Negative); Ketone, Urine Trace mg/dL (Negative); Leukocyte 250 Leu/uL (Negative); Nitrite Negative (Negative); Protein, Urine (Dipstick) 70 mg/dL (Neg-Trace); Specific Gravity, Urine 1.026 (1.002-1.036)
[2021-11-05 23:43] LABS: Bacteria/HPF None Seen HPF (None Seen); Calcium Oxalate Crystals 3+ HPF (None Seen); Squamous Epithelial 0-3 HPF (0-3)
[2021-11-06] MEDS ORDERED: Morphine 4 MG/ML VIAL ONE (00:36)
[2021-11-06] MEDS ORDERED: Ondansetron PF 4 MG/2 ML Vial ONE (00:36)
[2021-11-06] MEDS ORDERED: Ketorolac Tromethamine 30 MG/ML VIAL ONE (00:36)
== END 2021-11-06 04:00 | disposition home or self-care (01) ==
LOC: ERS 21:31
DX: D50.0 Iron deficiency anemia secondary to blood loss (chronic) (principal); N39.0 Urinary tract infection, site not specified; R29.898 Other symptoms and signs involving the musculoskeletal system
CPT/HCPCS: 36415; 36430; 74176; 80053; 81003; 81015; 83690; 84703; 85025; 85060; 86850; 86900; 86901; 96374; 96375; 96376; J1885; J2270; J2405; P9016

== ENCOUNTER 2022-01-08 09:28 | Emergency (ER) | payer SELFPAY ==
[2022-01-08] MEDS ORDERED: Iopamidol-370 76% 500 ML 1 ML ONE (09:31)
[2022-01-08] MEDS ORDERED: Ketorolac Tromethamine 30 MG/ML VIAL ONE ×2 (09:53→10:04)
[2022-01-08 12:27] LABS: Bilirubin Negative (Negative); Blood, Urine Negative (Negative); Clarity Clear (Clear); Glucose, Urine (Dipstick) Normal (Negative); Ketone, Urine Negative (Negative); Leukocyte Negative Leu/uL (Negative); Nitrite Negative (Negative); Protein, Urine (Dipstick) 10 mg/dL (Neg-Trace); Specific Gravity, Urine 1.027 (1.002-1.036); Urobilinogen Normal mg/dL (Less than 2); pH, Urine 6.5 (5.0-9.0)
[2022-01-08 12:32] LABS: #Eosinphils 0.2 thou/uL (0.0-0.7); #Lymphocytes 2.1 thou/uL (1.20-3.40); #Monocytes 0.4 thou/uL (0.11-0.59); %Basophils 0.6 % (0.0-1.0); %Eosinophils 2.6 % (0.0-10.0); %Lymphocytes 31.3 % (21.0-51.0); %Monocytes 6.2 % (0.0-10.0); %Neutrophils 59.3 % (42.0-75.0); Mean Corpuscular HGB CONC 30.9 g/dL (32.0-36.0); Mean Corpuscular Hemoglobin 26.8 pg (27.0-31.0); Mean Corpuscular Volume 86.6 fL (78.0-98.0); Mean Platelet Volume 11.5 fL (7.4-10.4); Platelet Count 262 thou/uL (130-400); RBC Distribution Width 22.9 % (11.5-14.5); Red Blood Cell (RBC) Count 4.85 mill/uL (4.20-5.40); White Blood Cell (WBC) Count 6.7 thou/uL (4.8-10.8)
[2022-01-08 12:35] LABS: Anisocytosis MODERATE=16-30 cells (100X) (0-5/hpf); MDiff Complete? YES; Platelet Morphology Comment Appears Adequate
[2022-01-08 12:36] LABS: BHCG - Serum Negative (NEGATIVE); Pregs Control Background? CLEAR/WHITE (CLR/WHITE); Pregs Control Bar Appear? YES (CONTROL BAR)
[2022-01-08 12:48] LABS: ALT (SGPT) 14 U/L (8-55); AST (SGOT) 12 U/L (5-34); Albumin 3.9 g/dL (3.5-5.0); Alkaline Phosphatase 74 U/L (40-110); Anion Gap 12 mmol/L (10-20); BUN (Urea Nitrogen) 6 mg/dL (7.0-18.7); Bilirubin, Total 0.5 mg/dL (0.2-1.2); CK (CPK) 67 U/L (29-168); Calc. Creatinine Clearance 0 mL/min (70-130); Calcium 9.4 mg/dL (7.8-10.44); Carbon Dioxide 24 mmol/L (22-29); Chloride 107 mmol/L (98-107); Estimated GFR 119; Globulin 3.5 g/dL (2.4-3.5); Glucose 108 mg/dL (70-105); Lipase 14 U/L (8-78); Potassium 3.3 mmol/L (3.5-5.1); Protein, Total 7.4 g/dL (6.0-8.3); Sodium 140 mmol/L (136-145)
[2022-01-08] MEDS ORDERED: Morphine 4 MG/ML VIAL ONE (12:57)
[2022-01-08] MEDS ORDERED: Ondansetron PF 4 MG/2 ML Vial ONE (12:58)
== END 2022-01-08 13:43 | disposition home or self-care (01) ==
LOC: ERS 09:28
DX: R07.89 Other chest pain (principal); D64.9 Anemia, unspecified
CPT/HCPCS: 71045; 71275; 80053; 81003; 82550; 83690; 84703; 85025; 85379; 93005; 96374; 96375; J1885; J2270; J2405; Q9967

== ENCOUNTER 2022-01-30 19:11 | Emergency (ER) | payer SELFPAY ==
[2022-01-30] MEDS ORDERED: Ondansetron ODT 4 MG TAB ONE (20:14)
[2022-01-30] MEDS ORDERED: Acetaminophen 500 MG TAB ONE (20:14)
[2022-01-30 21:08] LABS: Pregnancy Test - Urine (BHCG) Negative (Negative); Pregu Control Background? CLEAR/WHITE (CLR/WHITE); Pregu Control Bar Appear? YES (CONTROL BAR); Specific Gravity 1.034 (1.002-1.036)
[2022-01-30 21:09] LABS: Bilirubin Negative (Negative); Blood, Urine 3+ (Negative); Clarity Turbid (Clear); Glucose, Urine (Dipstick) Normal (Negative); Ketone, Urine 10 mg/dL (Negative); Leukocyte 25 Leu/uL (Negative); Mucous/LPF Rare LPF (<2+); Nitrite Negative (Negative); Protein, Urine (Dipstick) 100 mg/dL (Neg-Trace); RBC/HPF Greater than 50 HPF (0-3); Specific Gravity, Urine 1.034 (1.002-1.036); pH, Urine 6.5 (5.0-9.0)
[2022-01-30 21:27] LABS: Bacteria/HPF 1+ HPF (None Seen)
== END 2022-01-30 22:49 | disposition home or self-care (01) ==
LOC: ERS 19:11
DX: U07.1 COVID-19 (principal); D64.9 Anemia, unspecified
CPT/HCPCS: 71045; 81003; 81015; 81025; 87086; Q0162; U0003; U0005

== ENCOUNTER 2022-02-04 21:46 | Emergency (ER) | payer SELFPAY | END 2022-02-04 21:59 | disposition home or self-care (01) | LOC: ERS 21:46 | DX: U07.1 COVID-19 (principal) | CPT/HCPCS: 99283; U0003; U0005 ==

== ENCOUNTER 2022-02-10 21:47 | Emergency (ER) | payer SELFPAY | END 2022-02-10 22:31 | disposition home or self-care (01) | LOC: ERS 21:47 | DX: U07.1 COVID-19 (principal) | CPT/HCPCS: 99282 ==

== ENCOUNTER 2022-08-29 23:47 | Emergency (ER) | payer SELFPAY ==
[2022-08-30 00:24] LABS: #Eosinphils 0.2 thou/uL (0.0-0.7); #Lymphocytes 2.3 thou/uL (1.20-3.40); #Neutrophils 8.4 thou/uL (1.40-6.50); %Basophils 0.4 % (0.0-1.0); %Eosinophils 1.8 % (0.0-10.0); %Lymphocytes 19.4 % (21.0-51.0); %Monocytes 8.1 % (0.0-10.0); %Neutrophils 70.4 % (42.0-75.0); Hemoglobin 13.9 g/dL (12.0-16.0); Mean Corpuscular HGB CONC 33.8 g/dL (32.0-36.0); Mean Corpuscular Hemoglobin 30.5 pg (27.0-31.0); Mean Corpuscular Volume 90.3 fl (78.0-98.0); Mean Platelet Volume 7.5 fL (7.4-10.4); Platelet Count 237 10x3/uL (130-400); RBC Distribution Width 13.6 % (11.5-14.5); Red Blood Cell (RBC) Count 4.54 mill/uL (4.20-5.40)
[2022-08-30 00:44] LABS: ALT (SGPT) 23 U/L (8-55); AST (SGOT) 14 U/L (5-34); Albumin 3.9 g/dL (3.5-5.0); Alkaline Phosphatase 100 U/L (40-110); Anion Gap 13 mmol/L (10-20); BUN (Urea Nitrogen) 10 mg/dL (7.0-18.7); Bilirubin, Total 0.3 mg/dL (0.2-1.2); Calc. Creatinine Clearance 0 mL/min (70-130); Calcium 8.9 mg/dL (7.8-10.44); Carbon Dioxide 18 mmol/L (22-29); Chloride 109 mmol/L (98-107); Estimated GFR 121; Globulin 3.2 g/dL (2.4-3.5); Glucose 139 mg/dL (70-105); Potassium 3.9 mmol/L (3.5-5.1); Protein, Total 7.1 g/dL (6.0-8.3); Sodium 136 mmol/L (136-145)
[2022-08-30] MEDS ORDERED: Ketorolac Tromethamine 30 MG/ML VIAL ONE (01:51)
[2022-08-30 03:03] LABS: SARS-CoV-2 NAA Rapid Test DETECTED (NotDetected)
== END 2022-08-30 02:35 | disposition home or self-care (01) ==
LOC: ERS 23:47
DX: U07.1 COVID-19 (principal); J06.9 Acute upper respiratory infection, unspecified; Z20.822 Contact with and (suspected) exposure to COVID-19
CPT/HCPCS: 36415; 71045; 80053; 84484; 85025; 93005; 96372; J1885

== ENCOUNTER 2025-01-17 19:12 | Emergency (ER) | payer SELFPAY ==
[2025-01-18] MEDS ORDERED: Ibuprofen 800 MG TAB ONE (00:01)
[2025-01-18] MEDS ORDERED: Benzonatate 100 MG CAP ONE (00:02)
== END 2025-01-18 00:13 | disposition home or self-care (01) ==
LOC: ERS 19:12
DX: J06.9 Acute upper respiratory infection, unspecified (principal)
CPT/HCPCS: 87081; 87428; 87430; 99284

== ENCOUNTER 2025-04-21 08:41 | Emergency (ER) | payer OTHER, MEDICAID | END 2025-04-21 10:10 | disposition home or self-care (01) | LOC: ERS 08:41 | DX: U07.1 COVID-19 (principal); R09.81 Nasal congestion | CPT/HCPCS: 87081; 87428; 87430; 96372; 99283; J2919 ==